=== PATIENT | male | born 1975 | race Caucasian/White ===

== ENCOUNTER 2022-04-17 18:00 | Emergency (ER) | payer OTHER ==
[~2022-04-17] VITALS: Ht 185.4 cm; Wt 83.9 kg
[2022-04-17 20:02] VITALS: BP 140/81
[2022-04-17] MEDS ORDERED: IBUPROFEN 800 MG TAB PO ONE (20:30)
[2022-04-17] MEDS ORDERED: CYCL10TA16 PO (20:47)
[2022-04-17] MEDS ORDERED: IBUP-2071 PO (20:47)
== END 2022-04-17 20:52 | disposition home or self-care (01) ==
LOC: EDH 18:00
DX: M54.41 Lumbago with sciatica, right side (principal); Z98.890 Other specified postprocedural states